=== PATIENT | female | born 1945 | race Caucasian/White ===

== ENCOUNTER → 2020-12-12 | Outpatient (CLI) | payer MEDICARE ==
--- NOTE | 2020-12-12 12:28 | RAD ---
EXAM: Chest, 2 views. HISTORY: Shortness of breath. COMPARISON: None. FINDINGS: 2 views of the chest are obtained. There is suspected lingular atelectasis or scarring. The re is no infiltrate, pleural effusion or pneumothorax. The heart is normal in size. IMPRESSION: Suspected lingular atelectasis or scarring. Electronically signed by: Renita Conlkin MD (12/12/2020 12:26 PM) [id number]
== END ==
LOC: RAD 11:51
PROVIDERS: ATTEND Internal Medicine Cardiovascular Disease
DX: R06.09 Other forms of dyspnea (principal)
CPT/HCPCS: 71046